=== PATIENT | female | born 1955 | race Caucasian/White ===

== ENCOUNTER 2020-07-18 05:00 | Inpatient (IN) | payer OTHER, SELFPAY ==
[~2020-07-18] VITALS: Ht 152.4 cm; Wt 40.8 kg
[2020-07-18] MEDS ORDERED: DEXAMETHASONE 10 MG/ML VIAL IVP ONE (05:30)
[2020-07-18] MEDS ORDERED: AZITHROMYCIN 500 MG in DEXTROSE 5% 250 ML IV ONE (05:30)
--- NOTE | 2020-07-18 05:30 | NUR ---
BIBA TO ER BED 11
[2020-07-18 05:31] VITALS: BP 133/81
--- NOTE | 2020-07-18 05:31 | NUR ---
22G IV INSERTED INTO THE RIGHT AC AND LEFT WRIST. PT TOLERATED WELL.
--- NOTE | 2020-07-18 05:35 | NUR ---
PT CONNECTED TO THE DEPLOYMENT TECHNICIAN. RT AT BEDSIDE. ERMD AT BEDSIDE. BED IS LOCKED AND IN LOWEST POSITION. SIDE RAILSX2 FOR PT PROTECTION DUE TO ALOC. WILL CONTINUE TO MONITOR.
[2020-07-18] MEDS ORDERED: AZITHROMYCIN 500 MG INJ VIAL IV ONE ×2 (05:59→06:58)
[2020-07-18] MEDS ORDERED: cefTRIAXone 1,000 MG VIAL ONE (06:00)
--- NOTE | 2020-07-18 06:00 | NUR ---
PER ERMD BOLUS INITIATED
[2020-07-18] MEDS ORDERED: NOREPINEPHRINE 4 MG/4 ML VIAL IV ONE ×3 (06:05→23:10)
--- NOTE | 2020-07-18 06:05 | NUR ---
LEVOPHED STARTED AT 2MCG/KG/MIN
--- NOTE | 2020-07-18 06:10 | NUR ---
LEVOPHED INCREASED TO 4 MCG/KG/MIN
[2020-07-18] MEDS ORDERED: NACL 0.9% 1,000 ML IV ONE (06:15)
[2020-07-18] MEDS ORDERED: NOREPINEPHRINE 4 MG in DEXTROSE 5% 250 ML IV ONE (06:15)
[2020-07-18 06:43] LABS: BASOPHILS # (AUTO) 0.1 K/uL (0.00-0.22); BASOPHILS % (AUTO) 0.6 % (0.0-2.0); HEMATOCRIT 37.2 % (36-48); LYMPHOCYTES # (AUTO) 0.8 K/uL (2.5-16.5); LYMPHOCYTES % (AUTO) 6.3 % (20.5-51.1); MEAN CORPUSCULAR HEMOGLOBIN 29 pg (27-31); MEAN CORPUSCULAR HGB CONC 32 g/dL (33-37); MEAN CORPUSCULAR VOLUME 88.3 fL (80-94); MONOCYTES # (AUTO) 0.6 K/uL (0.8-1.0); MONOCYTES % (AUTO) 4.3 % (1.7-9.3); NEUTROPHILS # (AUTO) 11.8 K/uL (1.8-7.7); NEUTROPHILS % (AUTO) 88.8 % (42.2-75.2); PLATELET COUNT (AUTO) 207 K/uL (140-450); RED BLOOD CELL COUNT(AUTO) 4.21 MIL/uL (4.20-5.40); RED CELL DISTRIBUTION WIDTH 16.5 % (11.6-13.7); WHITE BLOOD COUNT (AUTO) 13.3 K/uL (4.8-10.8)
--- NOTE | 2020-07-18 07:00 | NUR ---
LEVOPHED STILL RUNNING AT 4 MCG/KG/MIN
--- NOTE | 2020-07-18 07:00 | NUR ---
PT IS ON BIPAP. PT PROVIDED WITH WARM BLANKETS. PT IS CONNECTED TO THE WE[employer]ER THINNER. BED IS LOCKED AND IN LOWEST POSITION. SIDE RAILSX2 FOR PT PROTECTION DUE TO ALOC. WILL CONTINUE TO MONITOR.
--- NOTE | 2020-07-18 07:05 | NUR ---
RT AT BEDSIDE FOR RE-EVALUATION DUE TO DESATURATION TO 73% ON BIPAP
[2020-07-18 07:10] LABS: D-DIMER 2970 ng/ml (0-400)
[2020-07-18 07:12] LABS: ALBUMIN 2.4 g/dL (3.4-5.0); ANION GAP 15.9 (8-16); CARBON DIOXIDE 24.9 mmol/L (21-32); POTASSIUM 3.8 mmol/L (3.5-5.1)
--- NOTE | 2020-07-18 07:19 | NUR ---
REPORT GIVEN TO CLAUDIO VALVERDE FOR TRANSFER OF CARE AT THIS TIME.
--- NOTE | 2020-07-18 07:30 | NUR ---
PLEASE SEE VITAL SIGNS DOCUMENT SPREADSHEET FOR VITAL SIGNS [id number]
--- NOTE | 2020-07-18 07:30 | NUR ---
65 [facility]. Unknown last seen normal. Patient skin pale and cool to the touch. Arousable to voice upon arrival. Pt in mild distress. Awake and positioned for comfort. Placed on bedside monitor. medhx: metabolic encephalopathy, dementia, HTN, multiple sclerosis, hypothyroidism, angelia
[2020-07-18 08:30] VITALS: BP 108/65
[2020-07-18] MEDS ORDERED: PROP20TA29 PO (09:01)
[2020-07-18] MEDS ORDERED: CITA20TA15 PO (09:01)
[2020-07-18] MEDS ORDERED: LEVO0.114 PO (09:01)
[2020-07-18] MEDS ORDERED: AMLO10TA PO (09:01)
[2020-07-18] MEDS ORDERED: LISI-420 PO (09:01)
[2020-07-18] MEDS ORDERED: PANT40EC PO (09:01)
[2020-07-18] MEDS ORDERED: [UNRECOGNIZED DRUG - CODE] PO (09:01)
[2020-07-18 09:20] LABS: C-REACTIVE PROTEIN QUANT 14.9 mg/dL (0.0-0.9)
--- NOTE | 2020-07-18 10:43 | NUR ---
Lab at bedside for blood draw.
--- NOTE | 2020-07-18 10:52 | NUR ---
Covid PCR, Covid katharina, and influenza swab collected and given to lab.
--- NOTE | 2020-07-18 12:00 | NUR ---
ASSISTED WITH POSITIONING. CONDITION REMAINS CRITICAL . LEVOPHED CONTINUE TO INFUSE WITH TITRATION. ATTACHED TO BIPAP, O2 SAT = 94%
[2020-07-18 12:03] LABS: FIBRINOGEN 594 mg/dL (200-400)
--- NOTE | 2020-07-18 12:12 | NUR ---
Spoke to patients pedro luis Holley-- call back with updates on patient [phone]
[2020-07-18] MEDS ORDERED: ALBUTEROL HFA MDI 90 MCG/ACTUATION 8 GM INH PRN (12:30)
[2020-07-18] MEDS ORDERED: ONDANSETRON 4 MG/2 ML VIAL IM/IVP PRN (12:30)
[2020-07-18] MEDS ORDERED: HYDROcodone/APAP 7.5/325 MG 1 TAB PO PRN (12:30)
[2020-07-18] MEDS ORDERED: ACETAMINOPHEN 325 MG TAB PO PRN (12:30)
[2020-07-18] MEDS ORDERED: DOCUSATE SODIUM 100 MG GELCAP PO PRN (12:30)
[2020-07-18] MEDS ORDERED: POTASSIUM CHLORIDE 10 MEQ TABER PO PRN (12:30)
--- NOTE | 2020-07-18 12:31 | NUR ---
ABG DRAWN ON RR WITHOUT INCIDENT AND RESULTS GIVEN TO AND DECREASED FIO2 TO 50%
[2020-07-18] MEDS ORDERED: NOREPINEPHRINE 8 MG in DEXTROSE 5% 250 ML IV PRN (12:45)
[2020-07-18] MEDS: NACL 0.9% 1,000 ML IV SCH (13:11)
--- NOTE | 2020-07-18 14:00 | NUR ---
LEVOPHED HAS BEEN INCREASED TO 8 MCG. BP IS LABILE
--- NOTE | 2020-07-18 16:50 | NUR ---
Lactic acid 3.1-- critical value received from lab.
[2020-07-18 16:52] LABS: PROTHROMBIN TIME 10.7 secs (10.8-13.4)
[2020-07-18 17:29] LABS: CHOL/HDL RATIO 1.6 (1-4.5); FREE T4 (FREE THYROXINE) 1.18 ng/dL (0.76-1.46); MAGNESIUM 2.6 mg/dL (1.8-2.4); PHOSPHORUS 3.8 mg/dL (2.5-4.9); THYROID STIMULATING HORMONE 1.31 uIU/mL (0.34-3.74)
--- NOTE | 2020-07-18 19:30 | NUR ---
RECEIVED REPORT FROM GUILLE SNYDER
--- NOTE | 2020-07-18 20:22 | NUR ---
PT'S O2 SAT 86, REPOSTIONED PT IN BED, O2 SAT WENT TO 99%. B/P 93/66 INCREASED LEVAPHED FROM 10 MCGS TO 12 MCGS
--- NOTE | 2020-07-18 20:45 | NUR ---
PT'S TOES ON BOTH FEET ARE PURPLE IN COLOE AND COOL TO TOUCH, PLACED SOCKS ON PATIENT AND PLACED WARM PADS TO BOTH FEET. FAINT PEDAL PULSE TO BOTH FEET. SKIN IS INTACT
[2020-07-18 21:57] VITALS: BP 104/64
--- NOTE | 2020-07-18 22:17 | NUR ---
PT'S B/P CONTINUES TO BE LOW, MOST RECENT INCREASED LEVAPHED TO 14 MCG. PT REPOSITIONED FOR COMFORT AND TO ALLEVIATED PRESSURE ON BONY PRO
--- NOTE | 2020-07-18 23:36 | NUR ---
UA FROM PREVIOUS SHIFT NON COLLECTED. PT'S DIAPER CHANGED, PT HAD STOOL AND WET DIAPER, PERINEAL AREA CLEANED, IN AND OUT CATH COMPLETED. PT POSITIONED WITH PILLOWS TO ELEVEATED ANY PRESSURE POINTS. RECTAL TEMP TAKEN, 99.8. WILL MEDICATE ORDERED. UA TAKEN TO LAB
--- NOTE | 2020-07-18 23:39 | NUR ---
NEW BAG OF LEVOPHED MIXED AND HUNG, PT CONTINUES TO RECEIVE 14 MCG/HR. REMAINS ON BESIDE MONITOR AND BIPAP MACHINE. RESPIRATIONS REGULAR EVEN AND UNLABORED.
[2020-07-19] LABS: APPEARANCE,URINE SL CLOUDY (CLEAR); BILIRUBIN,URINE NEGATIVE (NEGATIVE); BLOOD, URINE 3+ (NEGATIVE); COLOR,URINE BROWN (YELLOW); LEUKOCYTE ESTERASE ,URINE NEGATIVE (NEGATIVE); NITRITE, URINE NEGATIVE (NEGATIVE); PH,URINE 8.5 (5.0-9.0); UGLUCOSE NEGATIVE (NEGATIVE)
[2020-07-19 00:02] LABS: RBC,URINE TOO NUMEROUS TO COUN /HPF (0-5)
[2020-07-19 00:03] LABS: WBC,URINE 0 /HPF (0-5)
--- NOTE | 2020-07-19 00:06 | NUR ---
MEDICATED WITH NORCO BOTH FOR ELEVATED TEMP AND PT WAS GRIMACING WHEN BEING CHANGED AND REPOSITIONED.
--- NOTE | 2020-07-19 00:08 | NUR ---
PT UNABLE TO TAKE MEDS PO, TEXTED MD ALLISON AND ADVISED PT CANNOT TAKE PO MEDS, NEW ORDER RECEIVED AND CARRIED OUT
[2020-07-19] MEDS ORDERED: MORPHINE SULFATE 4 MG/ML SYR ONE (00:21)
[2020-07-19] MEDS ORDERED: MORPHINE SULFATE 4 MG/ML SYR IVP SCH (00:25)
[2020-07-19] MEDS ORDERED: NOREPINEPHRINE 8 MG in DEXTROSE 5% 250 ML IV PRN (00:35)
--- NOTE | 2020-07-19 03:06 | NUR ---
CORRECTION, BIPAP IS AT 50% NOT 100% O2
--- NOTE | 2020-07-19 03:06 | NUR ---
PT RESTING WITH EYES CLOSED, REMAINS ON BIPAP AT 100%, REMAINS ON BEDSIDE MONITOR. PT RESPOSTIONED AGAIN
[2020-07-19 03:08] VITALS: BP 110/66
--- NOTE | 2020-07-19 03:25 | NUR ---
PT'S TEMP REMAINS AT 99.9 RECTALLY, COOLING MEASURE INTIATED.
--- NOTE | 2020-07-19 03:32 | NUR ---
FEET REMAIN COOL TO TOUCH AND STILL DISCOLORED. TEXTED ADMITTING MD TO LET HIM KNOW. ALSO PT'S TEMP REMAINS 99.9 RECTALLY. DOES NOT APPEAR IN PAIN AT THIS TIME
--- NOTE | 2020-07-19 05:10 | NUR ---
ALARM SOUNDING ON BIPAP, CALLED RT TO ASSESS BIPAP. RT RESPOSITIONED MASK ON PT
[2020-07-19] MEDS: NACL 0.9% 1,000 ML IV SCH (05:16)
--- NOTE | 2020-07-19 05:17 | NUR ---
PT'S TEMP IS GOING HIGHER, CURRENT RECTAL TEMP 100.1. ICE PACKS PLACED IN GROIN, UNDER ARMS, AND BEHIND NECK. MD ALLISON WAS NOTIFIED X 2 WITH NO RESPONSE OR NEW ORDERS
--- NOTE | 2020-07-19 05:18 | NUR ---
PT WAS REPOSTIONED TO RIGHT SIDE TO ALLEVIATE PRESSURE
--- NOTE | 2020-07-19 05:20 | NUR ---
ALARM SOUNDING ON BIPAP MACHINE, CALLED RESPIRATORY. O2 SAT REMAINS
--- NOTE | 2020-07-19 05:30 | NUR ---
LEVOPHED INCREASED TO 16MCG
--- NOTE | 2020-07-19 06:05 | NUR ---
BIPAP IS ALARMING AGAIN, RESPIRATORY CALLED AGAIN
[2020-07-19] MEDS ORDERED: ACETAMINOPHEN 650 MG SUPP RC PRN (06:20)
[2020-07-19] MEDS ORDERED: ACETAMINOPHEN 650 MG SUPP RC ONE (06:21)
[2020-07-19] MEDS ORDERED: NACL 0.9% 1,000 ML IV SCH (06:30)
[2020-07-19] MEDS ORDERED: NACL 0.9% 1,000 ML IV ONE (06:30)
--- NOTE | 2020-07-19 06:33 | NUR ---
RECEIVED MESSAGE FROM MD ALLISON FOR ORDER FOR TYLENOL 650MG SUPPOSITORY, MEDICATED ORDERED
--- NOTE | 2020-07-19 06:41 | NUR ---
DIAPER CHANGED, PT ONLY URINATED, PERINEAL CLEANED, NEW DIAPER PLACED
--- NOTE | 2020-07-19 06:47 | NUR ---
MD ALLISON WANTS PT TO HAVE A BOLUS OF NS 1OOOML, AFTER BOLUS IF BP STILL REMAINS LOW HE WOULD LIKE NEOSYNEPHRINE TO START TO MAINTAIN A MAP ABOVE 65. WILL PASS ON TO ONCOMING SHIFT. BOLUS IS CURRENLY INFUSING
--- NOTE | 2020-07-19 07:08 | NUR ---
Pt report given to ABRAM SNYDER. Transfer of care at this time.
--- NOTE | 2020-07-19 07:40 | NUR ---
PATIENT SATURATIONS DROPPING TO 80%, BIPAP TIGHTENED AND NO IMPROVEMENT. CONTACTED FARRUKH RT AND SHE ADVISED TO INCREASE FI02 T0 100% AT THIS TIME.
--- NOTE | 2020-07-19 08:00 | NUR ---
MD ALLISON NOTIFIED REGARDING PATIENTS INABILITY TO SWALLOW PO MEDS. AM PO MEDS NOT GIVEN
[2020-07-19 08:01] VITALS: BP 120/83
--- NOTE | 2020-07-19 08:01 | NUR ---
REC'D PT ON DENISE V60 BIPAP SETTINGS 06/11 RR20 FIO2 50% ALARMS ON AND AUDIBLE AND BIPAP IS PLUGGED INTO RED OUTLET, B\S DIMINISHED BILATERALLY PT IS WEARING MED FACE MASK AND PT IS RESTING
[2020-07-19] MEDS ORDERED: PANTOPRAZOLE 40 MG TABEC PO SCH (09:00)
[2020-07-19] MEDS ORDERED: CITALOPRAM 20 MG TAB PO SCH (09:00)
[2020-07-19] MEDS ORDERED: AZITHROMYCIN 250 MG TAB PO SCH (09:00)
[2020-07-19] MEDS ORDERED: LEVOTHYROXINE 0.112 MG TAB PO SCH (09:00)
[2020-07-19] MEDS ORDERED: ZINC SULF 220 MG CAP PO SCH (09:00)
[2020-07-19] MEDS ORDERED: METAXALONE 400 MG PO SCH (09:00)
[2020-07-19] MEDS ORDERED: ASCORBIC ACID 500 MG TAB PO SCH (09:00)
--- NOTE | 2020-07-19 09:00 | NUR ---
PT REPOSITIONED ONTO LEFT SIDE LAYING POSITION
--- NOTE | 2020-07-19 09:13 | NUR ---
PATIENT HAS BEEN SCREENED AND CATEGORIZED HIGH NUTRITION RISK. PATIENT WILL BE SEEN WITHIN 1-2 DAYS OF ADMISSION. 07/19/20-07/20/[address]
[2020-07-19] MEDS ORDERED: cefTRIAXone 1,000 MG VIAL ONE (09:36)
--- NOTE | 2020-07-19 10:31 | NUR ---
SOCIAL WORK NOTE: Patient's Orientation Unable To Assess Information Provided By [facility] [place] [facility] [place] SW WAS UNABLE TO MEET PATIENT AT BEDSIDE. SW COMPLETED ASSESSMENT WITH STAFF FROM [facility] [place]. SW LEFT VM TO JOSY LEE. Regional Wildlife Agent, Realtionship and Phone Number JOSY KRISHNAN [phone] Healthcare Power of Cavalry Scout No Does Patient Have a POLST No Identifying Problems No Social Work Triggers Is A Social Work Consult Needed No Mandate Report Filed No Explanation Of Identifying Problems PATIENT IS A 65-YEAR-OLD FEMALE ADMITTED FOR SEPTIC SHOCK AND SUSPECTED COVID. PATIENT HAS PMHX OF DEMENTIA, HYPERTENSION, OCHOA DISEASE, AND HYPOTHYROIDISM. [facility] - [phone] Pre-Admission Level Of Functioning Status Total Care Prior Resources/Services Used In Last 12 Months SNF Rehab/Skilled Prior Resources/Service Comments PER JEFFREY, PATIENT IS SKILLED AND ON A BED HOLD. Prior DME Wheelchair Dialysis Comments N/A Patient Had Caregiver No Home Support No Caregiver Issues Financial Issues No Known Financial Issue Referral To The Financial Counselor Needed No Factors/Needs No D/C Needs Identified Pt/Rep Participated In Discharge Plan Yes Patient/Family Agress With Discharge Plan Yes Discharge Plan Comments TENTATIVE DISCHARGE PLAN IS FOR PATIENT TO RETURN TO [facility] [place]. DC Plan Status Initiated
[2020-07-19] MEDS ORDERED: hePARIN / DEXT 5% PREMIX 250 ML IV SCH (10:40)
[2020-07-19] MEDS ORDERED: HEPARIN PER PHARMACY MC PRN (10:40)
--- NOTE | 2020-07-19 11:00 | NUR ---
PATIENT REPOSITIONED ONTO RIGHT SIDE LAYING POSITION. LOOSE BM NOTED.
[2020-07-19 11:29] LABS: BASOPHILS # (AUTO) 0.1 K/uL (0.00-0.22); BASOPHILS % (AUTO) 0.4 % (0.0-2.0); HEMATOCRIT 36.7 % (36-48); HEMOGLOBIN 11.6 g/dL (12.0-16.0); LYMPHOCYTES # (AUTO) 0.7 K/uL (2.5-16.5); LYMPHOCYTES % (AUTO) 4.3 % (20.5-51.1); MEAN CORPUSCULAR HEMOGLOBIN 28 pg (27-31); MEAN CORPUSCULAR HGB CONC 32 g/dL (33-37); MONOCYTES # (AUTO) 0.3 K/uL (0.8-1.0); MONOCYTES % (AUTO) 1.9 % (1.7-9.3); NEUTROPHILS # (AUTO) 16.4 K/uL (1.8-7.7); NEUTROPHILS % (AUTO) 93.4 % (42.2-75.2); RED BLOOD CELL COUNT(AUTO) 4.07 MIL/uL (4.20-5.40); RED CELL DISTRIBUTION WIDTH 17.9 % (11.6-13.7); WHITE BLOOD COUNT (AUTO) 17.5 K/uL (4.8-10.8)
[2020-07-19 11:33] LABS: PLATELET COUNT (AUTO) 90 K/uL (140-450)
[2020-07-19] MEDS: NACL 0.45% 1,000 ML IV SCH ×2 (12:52→20:50)
[2020-07-19] MEDS ORDERED: PIPERACILLIN/TAZOBACTAM 3.375 GM in DEXTROSE 5% 50 ML IV SCH (13:00)
--- NOTE | 2020-07-19 13:00 | NUR ---
PATIENT REPOSITIONED AT THIS TIME
[2020-07-19] MEDS: PIPERACILLIN/TAZOBACTAM 2.25 GM in DEXTROSE 5% 50 ML IV SCH ×2 (13:10→20:12)
--- NOTE | 2020-07-19 13:48 | NUR ---
RECEIVED CALL FROM LAB REGARDING CRITICAL OF TROP 0.129, BUN 92, CREAT 3.1 PAGED.
[2020-07-19 13:51] LABS: POTASSIUM 5.3 mmol/L (3.5-5.1)
[2020-07-19 13:52] LABS: ANION GAP 21.8 (8-16); CARBON DIOXIDE 17.5 mmol/L (21-32); CREATININE 3.1 mg/dL (0.6-1.3)
--- NOTE | 2020-07-19 15:00 | NUR ---
PT REPOSITIONED AT THIS TIME
[2020-07-19 15:56] VITALS: BP 115/49
[2020-07-19 16:20] LABS: CKMB RELATIVE INDEX 6.3 (0.0-2.5); CREATINE KINASE MB 21.9 ng/mL (0-3.6)
[2020-07-19] MEDS ORDERED: ATORVASTATIN 20 MG TAB PO SCH (17:00)
[2020-07-19 18:08] LABS: PROTHROMBIN TIME 20.2 secs (10.8-13.4)
--- NOTE | 2020-07-19 18:26 | NUR ---
PTT 64.8--critical value received from lab.
--- NOTE | 2020-07-19 19:22 | NUR ---
REPORT RECEIVED FROM ABRAM SNYDER FOR CONTINUITY OF CARE
[2020-07-19 19:40] VITALS: BP 104/75
[2020-07-19 19:43] LABS: FERRITIN 319 ng/mL (15 - 150); LACTATE DEHYDROGENASE 347 IU/L (0-214)
[2020-07-19 19:56] LABS: T4 (THYROXINE) 5.2 ug/dL (4.5 - 12.0)
--- NOTE | 2020-07-19 20:00 | NUR ---
PT ON BIPAP O2 SATURATION 100%. IV SITES LAC 22 INFUSING HEPARIN 480 UNITS/HR AND LEVOPHED AT 30MCG/MIN AND LFA 22 INFUSING 0.45% NS AT 125 ML/HR. CORBIN CATHETER IN PLACE. VSS. WILL CONTINUE TO MONITOR.
[2020-07-19] MEDS ORDERED: PIPERACILLIN/TAZOBACTAM 2.25 GM VIAL IV ONE (20:05)
--- NOTE | 2020-07-19 22:14 | NUR ---
PT ON BIPAP MACHINE, 95% O2 SATURATION. WILL CONTINUE TO MONITOR.
--- NOTE | 2020-07-19 22:58 | NUR ---
LAB AT BEDSIDE
--- NOTE | 2020-07-20 00:14 | NUR ---
PER LAB, PTT TOO HIGH TO READ. HELD HEPARIN DRIP, PER PROTOCOL.
--- NOTE | 2020-07-20 01:14 | NUR ---
RESUMED HEPARIN DRIP. REDUCED DRIP FROM 480 UNITS/HR TO 330 UNITS/HR.
[2020-07-20 02:00] VITALS: BP 110/47
--- NOTE | 2020-07-20 03:44 | NUR ---
PT ON BIPAP MACHINE, 99% O2 SATURATION. WILL CONTINUE TO MONITOR.
[2020-07-20] MEDS ORDERED: INTUBATION KIT MC ONE (05:43)
[2020-07-20] MEDS ORDERED: DOPamine 400 MG/D5W PREMIX 250 ML IV ONE ×2 (05:47→05:50)
--- NOTE | 2020-07-20 05:58 | NUR ---
Dr. Leslie at bedside for procedure.
--- NOTE | 2020-07-20 06:01 | NUR ---
CALLED TO BEDSIDE DUE TO PT DESATURATING ON BiPAP. PT WAS SUCCESSFULLY INTUBATED.
[2020-07-20] MEDS ORDERED: PROPOFOL 1000 MG/100 ML PREMIX 100 ML IV ONE (06:05)
[2020-07-20] MEDS ORDERED: PROPOFOL 200 MG/20 ML VIAL IV ONE ×2 (06:05→06:45)
--- NOTE | 2020-07-20 06:09 | NUR ---
X-RAY AT BEDSIDE FOR TUBE PLACEMENT.
[2020-07-20] MEDS ORDERED: DOPPLER MC ONE (06:12)
--- NOTE | 2020-07-20 06:12 | NUR ---
CODE BLUE INITIATED
--- NOTE | 2020-07-20 06:31 | NUR ---
EKG PERFORMED AT BEDSIDE. EKG READS ATRIAL FLUTTER WITH PREDOMINANT 2:1 AV BLOCK @ 125
[2020-07-20] MEDS: NACL 0.45% 1,000 ML IV SCH (06:33)
[2020-07-20] MEDS ORDERED: PIPERACILLIN/TAZOBACTAM 2.25 GM VIAL IV ONE (06:35)
[2020-07-20] MEDS: PIPERACILLIN/TAZOBACTAM 2.25 GM in DEXTROSE 5% 50 ML IV SCH (06:36)
[2020-07-20] MEDS ORDERED: ETOMIDATE 20 MG/10 ML VIAL IVP ONE (06:40)
[2020-07-20] MEDS ORDERED: ROCURONIUM 50 MG/5 ML VIAL IV ONE (06:40)
--- NOTE | 2020-07-20 06:43 | NUR ---
RESPONDED TO CODE AND ASSITED W/ INTUBATION ALONG W/ OTHER RT. ROSC WAS OBTAINED. WAS PLACED ON VENT 7.5 ETT SECURED @23CM. VENT SETTINGS 400 +5 f18 100% SPO2 IS UNOBTAINABLE AT THIS TIME. WILL PERFORM POST INTUBATION ABG IN 1 HOUR.
--- NOTE | 2020-07-20 06:45 | NUR ---
PER ERMD START PROPOFOL. STARTED PROPOFOL AT THIS TIME 5MCG/KG/MIN.
[2020-07-20 06:49] VITALS: BP 164/111
[2020-07-20] MEDS ORDERED: PROPOFOL 1000 MG/100 ML PREMIX 100 ML IV PRN (07:00)
[2020-07-20 07:08] VITALS: BP 130/66
--- NOTE | 2020-07-20 07:10 | NUR ---
LAB AT BEDSIDE
--- NOTE | 2020-07-20 07:18 | NUR ---
REPORT GIVEN TO TARYN SNYDER FOR CONTINUITY OF CARE
[2020-07-20] MEDS ORDERED: NOREPINEPHRINE 4 MG/4 ML VIAL IV ONE (07:35)
--- NOTE | 2020-07-20 07:35 | NUR ---
ABG AND SPO2 IS UNOBTAINABLE AT THIS TIME
--- NOTE | 2020-07-20 07:52 | NUR ---
PT HR IN 30'S, RN AT BEDSIDE, FOUND PT PULSELESS. CPR INITIATED, DR. DONOVAN CALLED TO BEDSIDE. ACLS INITIATED. SEE CODE SHEET.
--- NOTE | 2020-07-20 08:06 | NUR ---
POWER AND RECOVERY SUPERINTENDENT CALLED TO NOTIFY ABOUT . SPOKE WITH NATALI AND A DEPUTY WILL RETURN CALL WHEN AVAILABLE.
--- NOTE | 2020-07-20 08:09 | NUR ---
RESPONDED TO CODE AND ROSC WAS UNOBTAINABLE
--- NOTE | 2020-07-20 08:12 | NUR ---
CALLED [facility] TO NOTIFY ABOUT . PT IS NOT A CANIDATE FOR DONATION. REFERENCE #[id number]
--- NOTE | 2020-07-20 08:33 | NUR ---
SPOKE TO DEPUTY JASON GATES AND BODY IS RELEASED BY [employer]OG[employer] ROLLER. NO CASE # GIVEN AT THIS TIME.
--- NOTE | 2020-07-20 08:39 | NUR ---
CALLED DR. CONTRERAS. SON OUTSIDE IN ER LOBBY. DR. CONTRERAS WILL BE OUT TO SPEAK WITH SON.
[2020-07-20 08:57] LABS: ANION GAP 28.6 (8-16); CARBON DIOXIDE 13.4 mmol/L (21-32)
[2020-07-20 08:58] LABS: CREATININE 3.7 mg/dL (0.6-1.3); TOTAL BILIRUBIN 1.6 mg/dL (0.0-1.0)
[2020-07-20 08:59] LABS: ALBUMIN 1.2 g/dL (3.4-5.0)
[2020-07-20] MEDS ORDERED: ECOTRIN 81 MG TABEC PO SCH (09:00)
--- NOTE | 2020-07-20 09:10 | NUR ---
SON JOSY AT BEDSIDE.
--- NOTE | 2020-07-20 11:15 | NUR ---
[place] [facility] [place] SON JOSY MADE AWARE. FAMILY WILL BE DECIDING ON MORTUARY ARRANGEMENTS. CHART GIVEN TO FORESTRY LABORER SERINA.
[2020-07-20 21:03] LABS: BASOPHILS # (AUTO) 0.1 K/uL (0.00-0.22); BASOPHILS % (AUTO) 0.4 % (0.0-2.0); EOSINOPHILS # (AUTO) 0.2 K/uL (0-0.4); EOSINOPHILS % (AUTO) 1.3 % (0.0-4.0); HEMATOCRIT 36.3 % (36-48); HEMOGLOBIN 10.4 g/dL (12.0-16.0); LYMPHOCYTES # (AUTO) 1.7 K/uL (2.5-16.5); LYMPHOCYTES % (AUTO) 10.1 % (20.5-51.1); MEAN CORPUSCULAR HEMOGLOBIN 29 pg (27-31); MEAN CORPUSCULAR HGB CONC 29 g/dL (33-37); MEAN CORPUSCULAR VOLUME 100.4 fL (80-94); MONOCYTES # (AUTO) 0.5 K/uL (0.8-1.0); MONOCYTES % (AUTO) 3.2 % (1.7-9.3); NEUTROPHILS # (AUTO) 14.2 K/uL (1.8-7.7); RED BLOOD CELL COUNT(AUTO) 3.62 MIL/uL (4.20-5.40); RED CELL DISTRIBUTION WIDTH 19.1 % (11.6-13.7); WHITE BLOOD COUNT (AUTO) 16.7 K/uL (4.8-10.8)
[2020-07-20 22:18] LABS: PLATELET COUNT (AUTO) 113 K/uL (140-450)
[2020-07-22 06:07] LABS: LD1 FRACTION 31 % (17-32); LD2 FRACTION 35 % (25-40); LD3 FRACTION 18 % (17-27); LD4 FRACTION 9 % (5-13); LD5 FRACTION 7 % (4-20)
== END 2020-07-20 08:05 | DRG 871 ==
LOC: MED 05:00 → MTU 12:42
PROVIDERS: ADMIT Emergency Medicine; ATTEND Emergency Medicine
PROC: 5A09457 Assistance with Respiratory Ventilation, 24-96 Consecutive Hours, Continuous Positive Airway Pressure (ICD-10-PCS; principal; 2020-07-18)
PROC: 0BH17EZ Insertion of Endotracheal Airway into Trachea, Via Natural or Artificial Opening (ICD-10-PCS; 2020-07-20)
PROC: 5A1935Z Respiratory Ventilation, Less than 24 Consecutive Hours (ICD-10-PCS; 2020-07-20)
PROC: 5A12012 Performance of Cardiac Output, Single, Manual (ICD-10-PCS; 2020-07-20)
DX: A41.9 Sepsis, unspecified organism (principal); R65.21 Severe sepsis with septic shock; J96.01 Acute respiratory failure with hypoxia; J18.9 Pneumonia, unspecified organism; N17.0 Acute kidney failure with tubular necrosis; G93.40 Encephalopathy, unspecified; I24.9 Acute ischemic heart disease, unspecified; G11.19 Other early-onset cerebellar ataxia; E87.0 Hyperosmolality and hypernatremia; E03.9 Hypothyroidism, unspecified; F03.90 Unspecified dementia, unspecified severity, without behavioral disturbance, psychotic disturbance, mood disturbance, and anxiety; Z20.822 Contact with and (suspected) exposure to COVID-19; N18.9 Chronic kidney disease, unspecified; I12.9 Hypertensive chronic kidney disease with stage 1 through stage 4 chronic kidney disease, or unspecified chronic kidney disease; G35 Multiple sclerosis; R77.8 Other specified abnormalities of plasma proteins
CPT/HCPCS: 36415; 36600; 71045; 76770; 80048; 80053; 81001; 82550; 82553; 82728; 82803; 83036; 83605; 83625; 83690; 83735; 83880; 84100; 84436; 84439; 84443; 84479; 84484; 85025; 85379; 85384; 85610; 85651; 85730; 86140; 86160; 87040; 87081; 87086; 87804; 93005; 94003; 94660; 96365; 96367; 96375; 99291; 99292; J0456; J0696; J1100; J1265; J1644; J2270; J2543; J2704; J3490; J7060; U0003